=== PATIENT | male | born 1970 | race Asian ===

== ENCOUNTER 2017-08-04 21:25 | Outpatient (CLI) | payer BC | END 2017-08-04 21:30 | disposition short-term general hospital (02) | LOC: AMB 21:25 | DX: I46.9 Cardiac arrest, cause unspecified (principal); S01.01XA Laceration without foreign body of scalp, initial encounter; S09.8XXA Other specified injuries of head, initial encounter; V03.10XA Pedestrian on foot injured in collision with car, pick-up truck or van in traffic accident, initial encounter; Y92.488 Other paved roadways as the place of occurrence of the external cause | CPT/HCPCS: A0425; A0427 ==